=== PATIENT | male | born 1985 | race Caucasian/White ===

== ENCOUNTER 2018-04-18 16:32 | Emergency (ER) | END 2018-04-18 18:32 | disposition home or self-care (01) ==

== ENCOUNTER 2018-04-23 15:03 | Emergency (ER) | END 2018-04-23 17:50 | disposition left against medical advice (07) ==

== ENCOUNTER 2018-05-02 14:44 | Emergency (ER) | payer MEDICAID ==
[~2018-05-02] VITALS: Ht 167.6 cm; Wt 70.4 kg
[~2018-05-02 14:44] MED LIST: ACET500C5 PO
[2018-05-02 14:46] VITALS: BP 133/85; PULSE 81; RESP 20; Ht 167.6 cm; Wt 70.4 kg
--- NOTE | 2018-05-02 17:53 | ERD ---
ER Documentation Chief Complaint Chief Complaint Patient here for suture removal HPI 32-year-old male is here for removal of 7 sutures from his right eyebrow that he states were placed 12 days ago. No new complaints. No fever. No bleeding or drainage. ROS All systems reviewed and are negative except as per history of present illness. Medications Home Meds Active Scripts Acetaminophen* (Tylophen*) 500 Mg Capsule, 1 CAP PO Q6H PRN for PAIN AND OR ELEVATED TEMP, #15 CAP Prov:PARRISH CAMACHO MD 04/18/18 Allergies Allergies: Coded Allergies: No Known Allergy (Unverified , 05/02/18) PMhx/Soc Medical and Surgical Hx: pt denies Medical Hx, pt denies Surgical Hx History of Surgery: No Anesthesia Reaction: No Hx Neurological Disorder: No Hx Respiratory Disorders: No Hx Cardiac Disorders: No Hx Psychiatric Problems: No Hx Miscellaneous Medical Probl: No Hx Alcohol Use: No Hx Substance Use: No Hx Tobacco Use: No Physical Exam Vitals Vital Signs Date Temp Pulse Resp B/P (MAP) Pulse Ox O2 O2 Flow FiO2 Time Delivery Rate 05/02/18 98.4 81 20 133/85 97 14:46 (101) Physical Exam Const: No acute distress Resp: Clear to auscultation bilaterally Cardio: Regular rate and rhythm, no murmurs Skin: Healing linear laceration through right eyebrow with [address], no surrounding erythema, no bleeding or drainage Procedures/MDM Sutures removed without complication. Patient counseled regarding my diagnostic impression and care plan. Prior to discharge all questions answered. Pt agrees with treatment plan and understands strict return precautions. Pt is instructed to follow up with primary care provider within 24-48 hours. Precautionary instructions provided including instructions to return to the ER if not improving or for any worsening or changing symptoms or concerns. Departure Diagnosis: Primary Impression: Encounter for removal of sutures Condition: Stable ABDOUL CAMPBELL PA-C May 02, 2018 17:53
== END 2018-05-02 18:18 | disposition home or self-care (01) ==
LOC: FTE 14:44
DX: Z48.02 Encounter for removal of sutures (principal)
CPT/HCPCS: 99281